=== PATIENT | female | born 1940 | race Caucasian/White ===

== ENCOUNTER 2018-11-20 14:17 | Outpatient (REF) | payer MEDICARE, OTHER, SELFPAY ==
--- NOTE | 2018-11-20 12:10 | CER_PTH ---
PATIENT: Artie Almaraz LOC: [facility] U#:[id number] AGE/SX: 78/F ROOM: RE11/20/[address]: Jessica Cifuentes MD : [id number] BED: DIS: 11/20/2018 SPEC #: [id number] RECD: 11/20/18 17:44 STATUS: KASSANDRA REQ #: [id number] ONOFRE: 11/20/18 12:[address]: Jessica Cifuentes DEPT: Surgical Specimen RECD BY: Gloria Crarero ENTERED: 11/20/18 17:45 SP TYPE: CER OTHR DR: Shonda Franco Tissues: 1 - CERVICAL BIOPSY Procedures: GROSS AND MICRO LEVEL 4 Comments: [id number]
== END 2018-11-20 14:37 ==
LOC: LBN 14:17
PROVIDERS: PCP Nurse Practitioner Family; Visit Provider Obstetrics & Gynecology
DX: N84.1 Polyp of cervix uteri (principal); N88.8 Other specified noninflammatory disorders of cervix uteri
CPT/HCPCS: 88305

== ENCOUNTER 2019-09-15 16:16 | Outpatient (REF) | payer MEDICARE, SELFPAY | END 2019-09-15 16:36 | LOC: LBN 16:16 | PROVIDERS: PCP Nurse Practitioner Family; Visit Provider Obstetrics & Gynecology Gynecology | DX: R30.0 Dysuria (principal) | CPT/HCPCS: 87077; 87086; 87186 ==

== ENCOUNTER 2022-10-10 12:19 | Inpatient (IN) | payer MEDICARE, SELFPAY ==
[2022-10-10] VITALS (23 sets, daily range): BP systolic 116–147; BP diastolic 48–73; PULSE 56–65; RESP 14–25; TEMP 36.8–37.2; O2SAT 94–98
--- NOTE | 2022-10-10 12:30 | RT.EKG_ITS ---
APPROVED REPORT Exam: Resting ECG Reason for Exam: syncope Patient Location: E HR:56 bpm ECG Measurements Heart Rate 56 AXIS MA 213 P 16 QRSd 143 QRS 27 QT 467 T -2 QTc 452 Conclusion Sinus bradycardia...rate< 60 Borderline prolonged MA interval...MA >212, V-rate 50- 90 Right bundle branch block...QRSd>120, terminal axis(90,270)
--- NOTE | 2022-10-10 12:45 | DI.RAD_ITS ---
Exam(s) XR PORTABLE CHEST AP EXAM: XR PORTABLE CHEST AP CLINICAL HISTORY: cough 2 weeks, pui. TECHNIQUE: 2D digital imaging was performed. COMPARISON: No exams were available for comparison FINDINGS: Single AP portable view. Heart size is upper normal. The mediastinum is not widened. Lungs are clear. No infiltrates nor obvious pleural effusions. IMPRESSION: No acute pulmonary findings on this single AP portable view of the chest. DATA REPOSITORY: RADIATION DOSE DELIVERED:
--- NOTE | 2022-10-10 13:06 | NUR.NOTE ---
Nursing Note: pt reports a family friend who is a doctor came to her house some time and tested her for COVID. She states this test was negative. Pt reports he gave her the script for tamiflu which was filled and 2 doses taken yesterday but that her family friend doctor that gave her this did not test her for flu or tell her she had flu but gave her tamiflu which she did take 2 doses (1 days worth) and then came here.
[2022-10-10 13:14] LABS: Abs Immature Grans 0.03 10^3/uL (0.0-0.06); Absolute Basophil Count 0.01 10^3/uL (0.0-0.2); Absolute Eosinophil Count 0.02 10^3/uL (0.0-0.7); Absolute Lymphocyte Count 1.25 10^3/uL (1.2-3.4); Absolute Monocyte Count 0.62 10^3/uL (0.1-0.8); Absolute Neutrophil Count 3.58 10^3/uL (1.2-6.7); Basophils % 0.2; Eosinophils % 0.4; HCT 34.5 % (36.0-46.0); HGB 11.5 g/dL (11.2-15.7); Immature Grans % 0.5; Lymphocytes % 22.7; MCH 28.8 pg (27.0-33.0); MCHC 33.3 % (32.0-36.0); MCV 87 fL (80-95); MPV 10.5 fL (8.0-11.0); Monocytes % 11.3; Neutrophils % 64.9; Platelet Count 181 10^3/uL (130-400); RBC 3.99 10^6/uL (3.93-5.22); RDW-SD 44.5 fL; WBC 5.51 10^3/uL (4.4-10.8)
--- NOTE | 2022-10-10 13:20 | ED.GENADUL_ITS ---
Discharge Plan Disposition Patient Disposition: Admit to [facility] Condition: Serious Discharge Details Clinical Impression: Weakness, Influenza A, Hypomagnesemia, Hypokalemia, GELY (acute kidney injury), Rhabdomyolysis Primary Care Provider: Shonda Franco ED Provider: Elliott Monteiro Home Meds and New Rx's Prescriptions: No Action atenolol 25 MG tablet 50 mg PO DAILY losartan-hydrochlorothiazide 1 EACH tablet 1 tab-cap PO DAILY simvastatin 20 MG tablet 20 mg PO DAILY EYE VITAMINS PO DAILY losartan 100 mg Tablet 100 mg PO DAILY hydrochlorothiazide 25 mg Tablet 25 mg PO DAILY oseltamivir 75 mg Capsule 75 mg PO BID Medical Decision Making 1411 --81-year-old female here with generalized weakness over the past few days, recent cough for the past 2 to 3 weeks. Patient called primary care physician and was started on Tamiflu empirically which she has been taking for couple days. Patient does have rhonchi on exam but is saturating well in no respiratory distress. Patient is generally weak with no focal deficits. Considered ACS. EKG was reviewed and interpreted by me: Please see report, sinus bradycardia 56 bpm right bundle branch block. Initial troponin negative. Influenza is positive. Patient receiving IV fluid. Labs reviewed and hypomagnesemia and hypokalemia noted. I will initiate replacement with magnesium 1 g IV. Patient does have elevated creatinine and BUN. I suspect prerenal secondary to hypovolemia. Plan to admit for further treatment. -- I spoke with Dr. Solorzano, discussed ED presentation course, he will admit the patient. Lab Data Lab results reviewed: Yes I reviewed the patient's lab results. Labs: Laboratory Tests Range/Units 10/10/22 10/10/22 10/10/22 12:35 12:35 13:03 WBC (4.4-10.8) 10^3/uL 5.51 RBC (3.93-5.22) 10^6/uL 3.99 Hgb (11.2-15.7) g/dL 11.5 Hct (36.0-46.0) % 34.5 L MCV (80-95) fL 87 MCH (27.0-33.0) pg 28.8 MCHC (32.0-36.0) % 33.3 RDW (11.7-14.6) % 14.0 Plt Count (130-400) 10^3/uL 181 MPV (8.0-11.0) fL 10.5 Immature Gran % 0.5 Neutrophils % 64.9 Lymphocytes % 22.7 Monocytes % 11.3 Eosinophils % 0.4 Basophils % 0.2 Nucleated RBC % (0.0-0.3) % 0.0 Absolute Neutrophils (1.2-6.7) 10^3/uL 3.58 Absolute Lymphocytes (1.2-3.4) 10^3/uL 1.25 Absolute Monocytes (0.1-0.8) 10^3/uL 0.62 Absolute Eosinophils (0.0-0.7) 10^3/uL 0.02 Absolute Basophils (0.0-0.2) 10^3/uL 0.01 Sodium (136-145) mmol/L 138 Potassium (3.5-5.1) mmol/L 3.1 L Chloride (98-107) mmol/L 101 Carbon Dioxide (21.0-32.0) mmol/L 26.9 Anion Gap (3-11) mmol/L 10.1 BUN (7-18) mg/dL 28 H Creatinine (0.55-1.02) mg/dL 1.7 H Est GFR (CKD-EPI 2020) (mL/min/1.73m2) 29.94 Glucose (74-106) mg/dL 102 Calcium (8.5-10.1) mg/dL 9.1 Magnesium (1.8-2.4) mg/dL 1.7 L Total Bilirubin (0.2-1.0) mg/dL 0.6 AST (15-37) U/L 59 H ALT (14-59) U/L 66 H Alkaline Phosphatase (46-116) U/L 97 Creatine Kinase (26-192) U/L 969 H Troponin I (<or=60) ng/L < 50 Total Protein (6.4-8.2) g/dL 7.9 Albumin (3.4-5.0) g/dL 3.9 TSH (0.36-3.74) uIU/mL 3.48 COVID-19 Source Not Applicable SARS-CoV-2 (PCR) (Negative) Negative Influenza Type A (PCR) (Negative) Positive A Influenza Type B (PCR) (Negative) Negative RSV (PCR) (Negative) Negative HPI General Mode of arrival: EMS . Date/Time Provider Initiated Documentation: 10/10/22 12:37 . Limitations to Documentation: no limitations . Information obtained by: patient and EMS . HPI Narrative: 81-year-old female with history of hypertension and hyperlipidemia presents with weakness. Patient notes generalized weakness worsening over the past few days. She states she has had respiratory illness with cough over the past 2 to 3 weeks. Cough has improved but she remains generally weak. She has lack of appetite. Today she was attempting out of bed and slid to the floor and could not get back up. She did not lose consciousness. She not hit her head. She denies chest pain or shortness of breath. Weakness is constant with no modifiers. No focal weakness. Related Data Home Medications Medication Instructions Recorded Confirmed atenolol 25 mg tablet 50 mg PO DAILY 11/23/13 10/10/22 losartan 100 1 tab-cap PO DAILY 11/23/13 03/20/22 mg-hydrochlorothiazide 25 mg tablet simvastatin 20 mg tablet 20 mg PO DAILY 11/23/13 10/10/22 Eye Vitamins PO DAILY 01/14/18 03/20/22 hydrochlorothiazide 25 mg tablet 25 mg PO DAILY 10/10/22 10/10/22 losartan 100 mg tablet 100 mg PO DAILY 10/10/22 10/10/22 oseltamivir 75 mg capsule 75 mg PO BID 10/10/22 10/10/22 Allergies Allergy/AdvReac Type Severity Reaction Status Date / Time acetaminophen [From Percocet] Allergy Unknown Verified 08/28/22 11:11 oxycodone HCl [From Percocet] Allergy Unknown Verified 08/28/22 11:11 erythromycin base AdvReac Sick to Verified 08/28/22 11:11 stomach General Stated Complaint: [id number] WHITNEY: 3 Review of Systems All systems reviewed & are unremarkable except as noted in HPI and below Constitutional Constitutional: Denies fever(s) Eyes Comments: Chronic ptosis left eye Respiratory Respiratory: Reports cough PFSH All Active Problems (Updated 10/10/22 @ 14:14 by Elliott Monteiro MD) Weakness (Acute) Influenza A (Acute) Hypomagnesemia (Acute) Hypokalemia (Acute) GELY (acute kidney injury) (Acute) Rhabdomyolysis (Acute) Skin rash (Acute) Patient advised to use topical antifungal and change type Vulvitis (Acute) History of Mohs surgery for squamous cell carcinoma of skin (Acute) 2016. X2. Fascial defect repaired by plastic surgery at [facility] [place] Presence of pessary (Chronic) 10/2018 64 mm donut pessary. Slipped out with Valsalva. 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 10/2018 64 mm donut pessary 08/2019 64 mm short stem Gellhorn. Essential hypertension (Acute) Hyperlipidemia (Acute) Cervical polyp (Acute 02/08/14) Family History Daughter Heart disease History of cardia myopathy had a successful heart transplant Social History Smoking/Tobacco Use Status: Never Smoking risk assessment performed?: Yes Alcohol Intake: current Alcohol Intake frequency: holidays/special occasions only Drug use: Never Substance use type: does not use Household members: spouse and other Details: H-Brayan Number of Children: 4 current occupation: Retired Do you feel safe at home: Yes Do you feel safe in your relationship?: Yes Exam Const General: cooperative and no acute distress HENMT Head: normocephalic and atraumatic Mouth: moist mucous membranes Eyes Conjunctivae: normal conjunctivae Sclera: normal sclerae EOM: EOM intact bilaterally Neck Neck: trachea midline and supple Resp Effort & Inspection: not labored Auscultation: no rales, rhonchi and no wheezes Cardio Rate: regular rate and not tachycardic Rhythm: regular rhythm GI Palpation: soft, not firm, no guarding, no masses, not rigid and nontender Skin General skin exam: no rashes or lesions noted Neuro General: patient alert and patient awake Motor: strength abnormal (3/5 all extremities, has difficulty sitting up in bed without assistance) Extrem General: no edema Psych Appearance: grossly normal Course Vital Signs Vital signs: Vital Signs Temperature 36.8 C 10/10/22 12:27 Pulse 65 10/10/22 12:27 Respiratory Rate 18 10/10/22 12:27 Blood Pressure 147/64 H 10/10/22 12:27 Pulse Oximetry 98 10/10/22 12:27 Temperature 36.8 C 10/10/22 12:27 Temperature Source Tympanic 10/10/22 12:27 Pulse 65 10/10/22 12:27 Respiratory Rate 18 10/10/22 12:27 Respiratory Effort 10/10/22 12:31 Respiratory Depth Normal 10/10/22 12:31 Respiratory Pattern Normal 10/10/22 12:31 Blood Pressure 147/64 H 10/10/22 12:27 Blood Pressure Position Supine 10/10/22 12:27 Pulse Oximetry 98 10/10/22 12:27 Oxygen Delivery Method Room Air 10/10/22 12:27 Oxygen Flow Rate 0 10/10/22 12:27 Pain Level 0 10/10/22 12:27 Lab/Test Results Lab/Test Results: Laboratory Tests Range/Units 10/10/22 12:35 WBC (4.4-10.8) 10^3/uL 5.51 RBC (3.93-5.22) 10^6/uL 3.99 Hgb (11.2-15.7) g/dL 11.5 Hct (36.0-46.0) % 34.5 L MCV (80-95) fL 87 MCH (27.0-33.0) pg 28.8 MCHC (32.0-36.0) % 33.3 RDW (11.7-14.6) % 14.0 Plt Count (130-400) 10^3/uL 181 MPV (8.0-11.0) fL 10.5 Immature Gran % 0.5 Neutrophils % 64.9 Lymphocytes % 22.7 Monocytes % 11.3 Eosinophils % 0.4 Basophils % 0.2 Nucleated RBC % (0.0-0.3) % 0.0 Absolute Neutrophils (1.2-6.7) 10^3/uL 3.58 Absolute Lymphocytes (1.2-3.4) 10^3/uL 1.25 Absolute Monocytes (0.1-0.8) 10^3/uL 0.62 Absolute Eosinophils (0.0-0.7) 10^3/uL 0.02 Absolute Basophils (0.0-0.2) 10^3/uL 0.01
[2022-10-10 13:35] LABS: ALT 66 U/L (14-59); AST 59 U/L (15-37); Albumin 3.9 g/dL (3.4-5.0); Alkaline Phosphatase 97 U/L (46-116); Anion Gap 10.1 mmol/L (3-11); BUN 28 mg/dL (7-18); Bilirubin, Total 0.6 mg/dL (0.2-1.0); CO2 26.9 mmol/L (21.0-32.0); CREATININE 1.7 mg/dL (0.55-1.02); Calcium 9.1 mg/dL (8.5-10.1); Chloride 101 mmol/L (98-107); Creatine Kinase 969 U/L (26-192); Estimated GFR 29.94 (mL/min/1.73m2); Glucose 102 mg/dL (74-106); Magnesium 1.7 mg/dL (1.8-2.4); Potassium 3.1 mmol/L (3.5-5.1); Sodium 138 mmol/L (136-145); TSH (W/Ref FT4) 3.48 uIU/mL (0.36-3.74); Total Protein 7.9 g/dL (6.4-8.2); Troponin I < 50 ng/L (<or=60)
[2022-10-10 13:47] LABS: COVID-19 PCR Negative (Negative); Influenza A PCR Positive (Negative); Influenza B PCR Negative (Negative); RSV PCR Negative (Negative)
[2022-10-10] MEDS: MAGNESIUM SULFATE 1 GM/100 ML BAG IVPB (14:26)
--- NOTE | 2022-10-10 14:27 | NUR.NOTE ---
Nursing Note: PT RESTING ON STRETCHER, FAMILY IN WAITING ROOM UPDATED, VICE PRESIDENT RESEARCH ON IV MAG. ORDERED, CONT. TO MONITOR.
[2022-10-10] MEDS: POTASSIUM CHLORIDE 20 MEQ/100 ML BAG 50 MEQ IVPB (15:57)
[2022-10-10 16:55] LABS: Bilirubin Negative (Negative); Blood Small (Negative); Clarity Sl Cloudy (Clear); Glucose Negative (Negative); Ketones Negative (Negative); Leukocyte Esterase Negative (Negative); Nitrite Negative (Negative); Specific Gravity >= 1.030 (1.005-1.025); Urobilinogen 0.2 EU/dL (Up TO 0.2)
[2022-10-10 17:06] LABS: Bacteria Moderate HPF (Negative); C & S Indicated? No/Sq. Contamination; Casts 3-5 Hyaline LPF (Negative); Crystals Negative HPF (Negative); Epithelial Cells Many HPF (Negative); Mucus Negative (Negative)
[2022-10-10] MEDS: Oseltamivir 30 MG CAP PO (17:53)
[2022-10-10] MEDS: Enoxaparin 30 MG/0.3 ML SYR SC (17:53)
[2022-10-10] MEDS: Normal Saline Flush 10 ML SYR IVP (17:57)
--- NOTE | 2022-10-10 19:28 | W.PM.HP.N ---
Date of service: 10/10/22 Time of Service: 19:28 Assessment and Plan Assessment and plan (1) Weakness: Status: Acute Assessment and plan: Secondary to INfluenza A PT to evaluate. Likely to resolve as influenza resolves. (2) Influenza A: Status: Acute Assessment and plan: Cont Tamiflu initiated as outpt No hypoxia noted. Supportive measures. (3) Hypomagnesemia: Status: Acute Assessment and plan: Repleting. Monitoring. (4) Hypokalemia: Status: Acute Assessment and plan: Repleting. Monitoring. (5) GELY (acute kidney injury): Status: Acute Assessment and plan: BUN and creatinine elevated; unknown baseline. Hydration. Monitor. (6) Rhabdomyolysis: Status: Acute Assessment and plan: Secondary to lying on floor overnight d/t weakness. Monitoring CK. Fluids. (7) Essential hypertension: Status: Acute Assessment and plan: Cont Atenolol and Losartan Monitor. (8) Hyperlipidemia: Status: Acute Assessment and plan: Cont Simvastatin. (9) Discharge planning issues: Status: Acute Assessment and plan: Likely home with no services but will be advised by PT after their evaluation for any rehab needs. History of Present Illness History of Present Illness Chief Complaint: Generalized weakness Narrative: This is an 81 yo female with a PMH of HTN, HLD, facial neuralgia, cystocele with rectocele. She presented to the ED because of generalized weakness over the last several days. For 2-3 weeks she had a cough that had improved. On the day of admission she was getting out of bed but she was weak in the legs and slid to the floor. No LOC. She denied hitting her head. She had no preceding palpitations, CP, SOA. She has had no fever/chills. In the ED her influenza A was positive. Her Mg and K were low and repletion efforts initiated. EKG showed sinus bradycardia with a HR of 56 and a RBBB. Troponin neg. WBC normal. Hgb 11.5. Creatinine 1.7. Baseline labs values not known. Admitted for further treatment; Tamiflu, PT, fluids, monitoring of lytes, CPK and creatinine. Review of Systems All systems reviewed & are unremarkable except as noted in HPI and below PFSH All Active Problems (Updated 10/11/22 @ 07:38 by Federico Solorzano MD) Discharge planning issues (Acute) Weakness (Acute) Influenza A (Acute) Hypomagnesemia (Acute) Hypokalemia (Acute) GELY (acute kidney injury) (Acute) Rhabdomyolysis (Acute) Skin rash (Acute) Patient advised to use topical antifungal and change type Vulvitis (Acute) History of Mohs surgery for squamous cell carcinoma of skin (Acute) 2016. X2. Fascial defect repaired by plastic surgery at [facility] [place] Presence of pessary (Chronic) 10/2018 64 mm donut pessary. Slipped out with Valsalva. 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 10/2018 64 mm donut pessary 08/2019 64 mm short stem Gellhorn. Essential hypertension (Acute) Hyperlipidemia (Acute) Cervical polyp (Acute 02/08/14) Family History Daughter Heart disease History of cardia myopathy had a successful heart transplant Social History Smoking/Tobacco Use Status: Never Smoking risk assessment performed?: Yes Alcohol Intake: current Alcohol Intake frequency: holidays/special occasions only Drug use: Never Substance use type: does not use Household members: spouse and other Details: H-Brayan Number of Children: 4 current occupation: Retired Do you feel safe at home: Yes Do you feel safe in your relationship?: Yes Meds Allergies and Home Medications Allergies Allergy/AdvReac Type Severity Reaction Status Date / Time acetaminophen [From Percocet] Allergy Unknown Verified 08/28/22 11:11 oxycodone HCl [From Percocet] Allergy Unknown Verified 08/28/22 11:11 erythromycin base AdvReac Sick to Verified 08/28/22 11:11 stomach Home Medications Medication Instructions Recorded Confirmed Type atenolol 25 mg tablet 50 mg PO DAILY 11/23/13 10/10/22 History losartan 100 1 tab-cap PO DAILY 11/23/13 03/20/22 History mg-hydrochlorothiazide 25 mg tablet simvastatin 20 mg tablet 20 mg PO DAILY 11/23/13 10/10/22 History Eye Vitamins PO DAILY 01/14/18 03/20/22 History hydrochlorothiazide 25 mg tablet 25 mg PO DAILY 10/10/22 10/10/22 History losartan 100 mg tablet 100 mg PO DAILY 10/10/22 10/10/22 History oseltamivir 75 mg capsule 75 mg PO BID 10/10/22 10/10/22 History Exam Narrative Exam Narrative: Pleasant elderly female lying in bed. Does not appear toxic. Const General: cooperative and no acute distress Nutritional Appearance: average body habitus Orientation: alert and oriented x3 Eyes General: appearance normal, both eyes and all related structures Sclera: sclerae normal Resp Effort & Inspection: normal respiratory effort Auscultation: clear to auscultation bilaterally Cardio Rate: regular rate Rhythm: regular rhythm Heart Sounds: S1 normal, S2 normal and no murmurs GI Inspection: non-distended Palpation: soft and nontender Skin General skin exam: no rashes or lesions noted Neuro General: no focal motor deficits Cranial Nerves: facial strength normal Cognition: normal cognition Speech: speech normal Results Labs Result diagrams: 10/10/22 12:35 10/10/22 12:35 Labs: Laboratory Results - last 24 hr 10/10/22 10/10/22 10/10/22 12:35 12:35 13:03 WBC 5.51 RBC 3.99 Hgb 11.5 Hct 34.5 L MCV 87 MCH 28.8 MCHC 33.3 RDW 14.0 Plt Count 181 MPV 10.5 Immature Gran % 0.5 Neutrophils % 64.9 Lymphocytes % 22.7 Monocytes % 11.3 Eosinophils % 0.4 Basophils % 0.2 Nucleated RBC % 0.0 Absolute Neutrophils 3.58 Absolute Lymphocytes 1.25 Absolute Monocytes 0.62 Absolute Eosinophils 0.02 Absolute Basophils 0.01 Sodium 138 Potassium 3.1 L Chloride 101 Carbon Dioxide 26.9 Anion Gap 10.1 BUN 28 H Creatinine 1.7 H Est GFR (CKD-EPI 2020) 29.94 Glucose 102 Calcium 9.1 Magnesium 1.7 L Total Bilirubin 0.6 AST 59 H ALT 66 H Alkaline Phosphatase 97 Creatine Kinase 969 H Troponin I < 50 Total Protein 7.9 Albumin 3.9 TSH 3.48 Urine Color Urine Clarity Urine pH Ur Specific Randle Urine Protein Urine Ketones Urine Blood Urine Nitrite Urine Bilirubin Urine Urobilinogen Ur Leukocyte Esterase Urine RBC Urine WBC Ur Epithelial Cells Urine Crystals Urine Bacteria Urine Casts Urine Mucus Ur Culture Indicated? Urine Glucose COVID-19 Source Not Applicable SARS-CoV-2 (PCR) Negative Influenza Type A (PCR) Positive A Influenza Type B (PCR) Negative RSV (PCR) Negative 10/10/22 16:40 WBC RBC Hgb Hct MCV MCH MCHC RDW Plt Count MPV Immature Gran % Neutrophils % Lymphocytes % Monocytes % Eosinophils % Basophils % Nucleated RBC % Absolute Neutrophils Absolute Lymphocytes Absolute Monocytes Absolute Eosinophils Absolute Basophils Sodium Potassium Chloride Carbon Dioxide Anion Gap BUN Creatinine Est GFR (CKD-EPI 2020) Glucose Calcium Magnesium Total Bilirubin AST ALT Alkaline Phosphatase Creatine Kinase Troponin I Total Protein Albumin TSH Urine Color Yellow Urine Clarity Sl Cloudy Urine pH 6.0 Ur Specific Randle >= 1.030 H Urine Protein Trace H Urine Ketones Negative Urine Blood Small H Urine Nitrite Negative Urine Bilirubin Negative Urine Urobilinogen 0.2 Ur Leukocyte Esterase Negative Urine RBC 3-5 H Urine WBC 3-5 Ur Epithelial Cells Many Urine Crystals Negative Urine Bacteria Moderate Urine Casts 3-5 Hyaline Urine Mucus Negative Ur Culture Indicated? No/Sq. Contamination Urine Glucose Negative COVID-19 Source SARS-CoV-2 (PCR) Influenza Type A (PCR) Influenza Type B (PCR) RSV (PCR) Last Vital Signs Temp 37.2 C 10/10/22 16:13 Pulse 65 10/10/22 16:13 Resp 20 10/10/22 16:13 BP 117/70 10/10/22 16:13 Pulse Ox 95 10/10/22 16:13
[2022-10-10] MEDS: Potassium Chloride 20 MEQ TABCR PO (20:23)
[2022-10-10] MEDS: Normal Saline 250 ML IV (20:44)
[2022-10-10 21:23] LABS: Bilirubin Negative (Negative); Blood Small (Negative); Clarity Sl Cloudy (Clear); Glucose Negative (Negative); Ketones Trace mg/dL (Negative); Leukocyte Esterase Negative (Negative); Nitrite Negative (Negative); Specific Gravity 1.025 (1.005-1.025); Urobilinogen 0.2 EU/dL (Up TO 0.2); pH 5.5 (5-8)
[2022-10-10] MEDS: Simvastatin 20 MG TAB PO (21:53)
[2022-10-10] MEDS: Atenolol 25 MG TAB 50 MG PO (21:53)
[2022-10-10] MEDS: Losartan 50 MG TAB 100 MG PO (21:54)
[2022-10-10 22:15] LABS: Bacteria Moderate HPF (Negative); C & S Indicated? No/Sq. Contamination; Casts 0-2 Hyaline LPF (Negative); Crystals Negative HPF (Negative); Epithelial Cells Many HPF (Negative); Mucus Negative (Negative); WBC 0-2 HPF (0-5)
[2022-10-11 07:47] LABS: Anion Gap 8.6 mmol/L (3-11); BUN 30 mg/dL (7-18); CO2 25.4 mmol/L (21.0-32.0); CREATININE 1.4 mg/dL (0.55-1.02); Calcium 9.1 mg/dL (8.5-10.1); Chloride 105 mmol/L (98-107); Glucose 79 mg/dL (74-106); Magnesium 2.1 mg/dL (1.8-2.4); Potassium 3.7 mmol/L (3.5-5.1); Sodium 139 mmol/L (136-145)
[2022-10-11 07:48] LABS: Creatine Kinase 1321 U/L (26-192)
[2022-10-11] MEDS: Oseltamivir 30 MG CAP PO (07:48)
[2022-10-11] MEDS: Potassium Chloride 20 MEQ TABCR PO (07:49)
[2022-10-11 07:50] LABS: Troponin I < 50 ng/L (<or=60)
[2022-10-11 07:51] VITALS: BP 131/72; PULSE 65; RESP 16; TEMP 37.2; O2SAT 95
--- NOTE | 2022-10-11 08:29 | INITIAL_ITS ---
- If Service Date Differs Date of service: 10/11/22 Time of Service: 13:43 Care Management Initial Assess REASON FOR HOSPITALIZATION:: Influenza A PAST MEDICAL HISTORY/PAST SURGICAL HISTORY:: All Active Problems (Updated 10/11/22 @ 07:38 by Federico Solorzano MD). Discharge planning issues (Acute). Weakness (Acute). Influenza A (Acute). Hypomagnesemia (Acute). Hypokalemia (Acute). GELY (acute kidney injury) (Acute). Rhabdomyolysis (Acute). Skin rash (Acute). Patient advised to use topical antifungal and change type. Vulvitis (Acute). History of Mohs surgery for squamous cell carcinoma of skin (Acute). 2016. X2. Fascial defect repaired [place] [facility] [place] Presence of pessary (Chronic). 10/2018 64 mm donut pessary. Slipped out with Valsalva. 08/2019 64 mm short stem Gellhorn placed. Facial neuralgia (Chronic). 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 Subsequent nerve damage involving sensation on cheek and left eye. Pessary maintenance (Acute). Cystocele with rectocele (Acute). And stage II uterine prolapse. 10/2018 64 mm donut pessary. 08/2019 64 mm short stem Gellhorn. Essential hypertension (Acute). Hyperlipidemia (Acute). Cervical polyp (Acute 02/08/14) PREVIOUS FUNCTIONAL STATUS/SOCIAL/FAMILY SUPPORTS:: Artie lives in [place], [place] with her Brayan. CURRENT FUNCTIONAL STATUS:: Shobha was dressed and ready to discharge when met with her. She informed that her daughter would be transporting her. She expressed concern because her daughter has recently had open heart surgery. provided Artie with 2 masks, one for her and one for her daughter to wear in the car as Artie has Influenza A. ADVANCE DIRECTIVES:: none on file Has patient been provided with info about the portal/API?: Yes Did the patient sign up for the portal?: No CODE STATUS:: Full Code INSURANCE COVERAGE / FINANCIAL ISSUES:: Medicare. [employer] Senior supplement CURRENT HOME/COMMUNITY SERVICES/EQUIPMENT:: none PRIMARY CARE PHYSICIAN:: Shonda Franco POTENTIAL DISCHARGE NEEDS:: Follow up with PCP and plan of care PATIENT/FAMILY EDUCATION NEEDS:: Review of discharge instructions, limitations, medications, activity, follow up plan, Ask Me Three TRANSPORTATION:: via privatre vehicle with daughter PLAN:: Artie will be discharged home with no new services. She will follow up with her community providers and plan of care and transport with her daughter.
--- NOTE | 2022-10-11 12:20 | DSE_ITS ---
Date of service: 10/11/22 Time of Service: 12:23 DS: Diagnosis Discharge Diagnosis (1) Weakness: Status: Acute (2) Influenza A: Status: Acute (3) Hypomagnesemia: Status: Acute (4) Hypokalemia: Status: Acute (5) GELY (acute kidney injury): Status: Acute (6) Rhabdomyolysis: Status: Acute (7) Essential hypertension: Status: Acute (8) Hyperlipidemia: Status: Acute (9) Discharge planning issues: Status: Acute Discharge Plan Disposition Patient Disposition: Home Condition: Improving Discharge Details Reason For Visit: Influenza A Generalized weakness Admit Date/Time: 10/10/22 14:31 Admit Provider: Federico Solorzano Attending Provider: Federico Solorzano Primary Care Provider: Shonda Franco Hospital Course Hospital Course: This is an 81 yo female with a PMH of HTN, HLD, facial neuralgia, cystocele with rectocele.? She presented to the ED because of generalized weakness over the last several days. For 2-3 weeks she had a cough that had improved.? On the day of admission she was getting out of bed but she was weak in the legs and slid to the floor.? No LOC.? She denied hitting her head.? She had no preceding palpitations, CP, SOA.? She has had no fever/chills. In the ED her influenza A was positive.? Her Mg and K were low and repletion efforts initiated.? EKG showed sinus bradycardia with a HR of 56 and a RBBB.? Troponin neg.? WBC normal.? Hgb 11.5.? Creatinine 1.7.? Baseline labs values not known.? Admitted for further treatment; Tamiflu, PT, fluids, monitoring of lytes, CPK and creatinine. She felt better the following day. She ambulated independently in her room and felt she was progressing. Her lytes were repleted and normalized. Her CPK did increase modestly from 969 to 1321. However, her creatinine improved from 1.6 to 1.4. Another 250ml NS bolus administered prior to discharge. Encouraged to drink adequate fluids to keep her urine pale yellow. Follow up with PCP in 1-2 weeks. ? Home Meds and New Rx's Prescriptions: Continued atenolol 25 MG tablet 50 mg PO DAILY losartan-hydrochlorothiazide 1 EACH tablet 1 tab-cap PO DAILY simvastatin 20 MG tablet 20 mg PO DAILY EYE VITAMINS PO DAILY hydrochlorothiazide 25 mg Tablet 25 mg PO DAILY Discontinued losartan 100 mg Tablet 100 mg PO DAILY oseltamivir 75 mg Capsule 75 mg PO BID Discharge Instructions Activity:: Activity as Tolerated Equipment/Supplies:: No Equipment Needed Diet:: Resume usual diet Discharge Orders Discharge Orders: Discharge Order (Routine); Ordered 10/11/22 Ordered By: Federico Solorzano DS: Summary Time Spent with Patient providing and/or coordinating discharge services: Greater than 30 minutes Status at Discharge Functional status at discharge: independent ambulation Overall status at discharge: patient is progressing back to baseline Mental Status: mental status grossly normal Speech and Movement: speech and movement normal Mood: congruent mood Affect: normal affect Exam Narrative Exam Narrative: Pleasant elderly female lying in bed. Does not appear toxic. Const General: cooperative and no acute distress Nutritional Appearance: average body habitus Orientation: alert and oriented x3 Eyes General: appearance normal, both eyes and all related structures Sclera: sclerae normal Resp Effort & Inspection: normal respiratory effort Auscultation: clear to auscultation bilaterally Cardio Rate: regular rate Rhythm: regular rhythm Heart Sounds: S1 normal, S2 normal and no murmurs GI Inspection: non-distended Palpation: soft and nontender Skin General skin exam: no rashes or lesions noted Neuro General: no focal motor deficits Cranial Nerves: facial strength normal Cognition: normal cognition Speech: speech normal Extrem General: no pedal edema and no calf tenderness Psych Mental Status: mental status grossly normal Speech and Movement: speech and movement normal Mood: congruent mood Affect: normal affect DS: Data Vitals/I&O Vitals and I&O: Vital Signs Temperature 37.2 C 10/11/22 07:51 Temperature Source Tympanic 10/11/22 07:51 Pulse 65 10/11/22 07:51 Pulse Rhythm Regular 10/11/22 07:45 Pulse 59 L 10/10/22 15:50 Respiratory Rate 16 10/11/22 07:51 Respiratory Effort Non-Labored 10/11/22 07:45 Respiratory Depth Normal 10/11/22 07:45 Respiratory Pattern Normal 10/11/22 07:45 Blood Pressure 131/72 10/11/22 07:51 Blood Pressure Mean 75 10/10/22 15:45 Blood Pressure Position Supine 10/10/22 12:27 Pulse Oximetry 95 10/11/22 07:51 Oxygen Delivery Method Room Air 10/11/22 07:51 Oxygen Flow Rate 0 10/11/22 07:51 Pain Level 0 10/11/22 07:51 Intake & Output 10/10/22 10/11/22 10/11/22 23:59 11:59 23:59 Intake Total 550 / 550 Output Total 250 / 250 500 / 500 Balance 300 / 300 -500 / -500 Weight 72.575 kg Intake: IV 450 / 450 Oral 100 / 100 Output: Urine 250 / 250 500 / 500 Other: Urine Color Yellow Yellow Urine Appearance Clear Clear Urine Odor Normal None Data Completed and Pending Labs on day of discharge: Labs from last 24 hours 10/11/22 10/11/22 10/10/22 06:40 06:40 20:36 WBC RBC Hgb Hct MCV MCH MCHC RDW Plt Count MPV Immature Gran % Neutrophils % Lymphocytes % Monocytes % Eosinophils % Basophils % Nucleated RBC % Absolute Neutrophils Absolute Lymphocytes Absolute Monocytes Absolute Eosinophils Absolute Basophils Sodium 139 Potassium 3.7 Chloride 105 Carbon Dioxide 25.4 Anion Gap 8.6 BUN 30 H Creatinine 1.4 H Est GFR (CKD-EPI 2020) 37.80 Glucose 79 Calcium 9.1 Magnesium 2.1 Total Bilirubin AST ALT Alkaline Phosphatase Creatine Kinase 1321 H Troponin I < 50 Total Protein Albumin TSH Urine Color Yellow Urine Clarity Sl Cloudy Urine pH 5.5 Ur Specific Gardiner 1.025 Urine Protein 30 H Urine Ketones Trace H Urine Blood Small H Urine Nitrite Negative Urine Bilirubin Negative Urine Urobilinogen 0.2 Ur Leukocyte Esterase Negative Urine RBC 3-5 H Urine WBC 0-2 Ur Epithelial Cells Many Urine Crystals Negative Urine Bacteria Moderate Urine Casts 0-2 Hyaline Urine Mucus Negative Ur Culture Indicated? No/Sq. Contamination Urine Glucose Negative COVID-19 Source SARS-CoV-2 (PCR) Influenza Type A (PCR) Influenza Type B (PCR) RSV (PCR) 10/10/22 10/10/22 10/10/22 16:40 13:03 12:35 WBC 5.51 RBC 3.99 Hgb 11.5 Hct 34.5 L MCV 87 MCH 28.8 MCHC 33.3 RDW 14.0 Plt Count 181 MPV 10.5 Immature Gran % 0.5 Neutrophils % 64.9 Lymphocytes % 22.7 Monocytes % 11.3 Eosinophils % 0.4 Basophils % 0.2 Nucleated RBC % 0.0 Absolute Neutrophils 3.58 Absolute Lymphocytes 1.25 Absolute Monocytes 0.62 Absolute Eosinophils 0.02 Absolute Basophils 0.01 Sodium Potassium Chloride Carbon Dioxide Anion Gap BUN Creatinine Est GFR (CKD-EPI 2020) Glucose Calcium Magnesium Total Bilirubin AST ALT Alkaline Phosphatase Creatine Kinase Troponin I Total Protein Albumin TSH Urine Color Yellow Urine Clarity Sl Cloudy Urine pH 6.0 Ur Specific Gardiner >= 1.030 H Urine Protein Trace H Urine Ketones Negative Urine Blood Small H Urine Nitrite Negative Urine Bilirubin Negative Urine Urobilinogen 0.2 Ur Leukocyte Esterase Negative Urine RBC 3-5 H Urine WBC 3-5 Ur Epithelial Cells Many Urine Crystals Negative Urine Bacteria Moderate Urine Casts 3-5 Hyaline Urine Mucus Negative Ur Culture Indicated? No/Sq. Contamination Urine Glucose Negative COVID-19 Source Not Applicable SARS-CoV-2 (PCR) Negative Influenza Type A (PCR) Positive A Influenza Type B (PCR) Negative RSV (PCR) Negative 10/10/22 12:35 WBC RBC Hgb Hct MCV MCH MCHC RDW Plt Count MPV Immature Gran % Neutrophils % Lymphocytes % Monocytes % Eosinophils % Basophils % Nucleated RBC % Absolute Neutrophils Absolute Lymphocytes Absolute Monocytes Absolute Eosinophils Absolute Basophils Sodium 138 Potassium 3.1 L Chloride 101 Carbon Dioxide 26.9 Anion Gap 10.1 BUN 28 H Creatinine 1.7 H Est GFR (CKD-EPI 2020) 29.94 Glucose 102 Calcium 9.1 Magnesium 1.7 L Total Bilirubin 0.6 AST 59 H ALT 66 H Alkaline Phosphatase 97 Creatine Kinase 969 H Troponin I < 50 Total Protein 7.9 Albumin 3.9 TSH 3.48 Urine Color Urine Clarity Urine pH Ur Specific Gardiner Urine Protein Urine Ketones Urine Blood Urine Nitrite Urine Bilirubin Urine Urobilinogen Ur Leukocyte Esterase Urine RBC Urine WBC Ur Epithelial Cells Urine Crystals Urine Bacteria Urine Casts Urine Mucus Ur Culture Indicated? Urine Glucose COVID-19 Source SARS-CoV-2 (PCR) Influenza Type A (PCR) Influenza Type B (PCR) RSV (PCR) PFSH All Active Problems Discharge planning issues (Acute) Weakness (Acute) Influenza A (Acute) Hypomagnesemia (Acute) Hypokalemia (Acute) GELY (acute kidney injury) (Acute) Rhabdomyolysis (Acute) Skin rash (Acute) Patient advised to use topical antifungal and change type Vulvitis (Acute) History of Mohs surgery for squamous cell carcinoma of skin (Acute) 2016. X2. Fascial defect repaired by plastic surgery at [facility] [place] Presence of pessary (Chronic) 10/2018 64 mm donut pessary. Slipped out with Valsalva. 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 10/2018 64 mm donut pessary 08/2019 64 mm short stem Gellhorn. Essential hypertension (Acute) Hyperlipidemia (Acute) Cervical polyp (Acute 02/08/14) Family History Daughter Heart disease History of cardia myopathy had a successful heart transplant Social History Smoking/Tobacco Use Status: Never Smoking risk assessment performed?: Yes Alcohol Intake: current Alcohol Intake frequency: holidays/special occasions only Drug use: Never Substance use type: does not use Household members: spouse and other Details: [facility] Number of Children: 4 current occupation: Retired Do you feel safe at home: Yes Do you feel safe in your relationship?: Yes
--- NOTE | 2022-10-11 12:52 | PT.INNT ---
Date of service: 10/11/22 Time of Service: 12:52 PT Notes Visit Reasons: Influenza A Generalized weakness Patient has been independent with mobility performance without need for assistive device per Nurse Loreto. No skilled services were provided for this epsiode of care.
--- NOTE | 2022-10-11 13:43 | PDOC.CMDIS ---
- If Service Date Differs Date of service: 10/11/22 Time of Service: 13:43 LACE Index Scoring Tool - Questions: Length of Stay (in days): 1 Acuity (Admit via E.D.?): Yes E.D. Visits: 0 - Answers: Total Score: 4 Risk of Readmission: Low Risk Care Management Discharge Reason for Hospitalization: Influenza A
== END 2022-10-11 13:08 | disposition home or self-care (01) | DRG 194 ==
LOC: ER 15:04 → MS 16:06
PROVIDERS: Admitting Provider Family Medicine; Emergency Provider Student in an Organized Health Care Education/Training Program; PCP Nurse Practitioner Family; Visit Provider Family Medicine
DX: J10.1 Influenza due to other identified influenza virus with other respiratory manifestations (principal); M62.82 Rhabdomyolysis; N17.9 Acute kidney failure, unspecified; R53.1 Weakness; E83.42 Hypomagnesemia; E87.6 Hypokalemia; E78.5 Hyperlipidemia, unspecified; W06.XXXA Fall from bed, initial encounter; I45.10 Unspecified right bundle-branch block
CPT/HCPCS: 36415; 80048; 80053; 82550; 87637; 93005; 96365; 96372; 96375; 99239; 99285; 71045; 81003; 81015; 83735; 84443; 84484; 85025; 93010; 99222; J1650; J3475; J3480

== ENCOUNTER 2023-07-04 08:27 | Emergency (ER) | payer MEDICARE, SELFPAY ==
--- NOTE | 2023-07-04 09:32 | W.ED.GENAD ---
Discharge Plan Disposition Patient Disposition: Home Discharge Details Chief Complaint: GenMedical Clinical Impression: COVID-19 Primary Care Provider: Unknown,Unknown ED Provider: August Barboza Home Meds and New Rx's Prescriptions: No Action lorazepam [Ativan] 0.5 mg tablet 0.5 mg PO QHS PRN (Reason: anxiety) Qty: 30 0RF atenolol 25 MG tablet 50 mg PO DAILY losartan-hydrochlorothiazide 1 EACH tablet 1 tab-cap PO DAILY simvastatin 20 MG tablet 20 mg PO DAILY EYE VITAMINS PO DAILY hydrochlorothiazide 25 mg Tablet 25 mg PO DAILY Discharge Instructions Instructions: COVID-19 (Coronavirus Disease 2019) (ED) Additional Instructions: At this time your COVID test is positive. Your renal function is at the point that it can take the regular dosing of the Paxlovid. Please take the Paxlovid as directed on the packaging insert. Please stop taking your simvastatin while on this medication. If you notice any worsening of your symptoms, or any new symptoms such as vomiting, diarrhea, fever, chills, shortness of breath, chest pain, numbness, weakness, or fainting , please return immediately to the emergency department for reevaluation. Please follow up with your primary care provider as soon as possible for reassessment and reevaluation. As always, it was a pleasure participating in your medical care today. Medical Decision Making 82-year-old female with past medical history of hypertension, high cholesterol, and previous GELY, presents today with her significant other for symptoms of runny nose, congestion and feeling poorly/malaise. About 48 hours ago the patient started feeling poorly with her significant other. They did a home COVID test and it was positive. She denies any cough, shortness of breath or chest pain. She has received her COVID booster 1 year ago. She has not had COVID yet. She denies any history of blood clots or lung disease. No other complaints at this time. Exam demonstrates a well-appearing female, lung sounds clear, vital signs excellent. No signs of hypoxemia or other concerning abnormalities. With patient's age and risk factors she would be a good candidate for Paxlovid. We will check basic labs to evaluate for renal functionality, monitor closely and reassess. COVID test is positive. Will recommend holding simvastatin while on Paxlovid. Renal function is 34 for GFR, and literature still recommends nonrenal dosing greater than 30 for GFR. We will get this. Discussed red flags which to return. I have extensively reviewed the treatment plan and discharge instructions with the patient and their family. I have addressed all patient concerns at this time. The patient and family was made aware of what symptoms to monitor for that would warrant a return to the emergency department. Discussed the plan with the patient and family, they demonstrate verbal understanding and agreement with our assessment and plan at this time. The documentation in this chart was dictated using [employer] dictation software. Please excuse any dictation errors. HPI General Date/Time Provider Initiated Documentation: 07/04/23 09:24. HPI Narrative: 82-year-old female with past medical history of hypertension, high cholesterol, and previous GELY, presents today with her significant other for symptoms of runny nose, congestion and feeling poorly/malaise. About 48 hours ago the patient started feeling poorly with her significant other. They did a home COVID test and it was positive. She denies any cough, shortness of breath or chest pain. She has received her COVID booster 1 year ago. She has not had COVID yet. She denies any history of blood clots or lung disease. No other complaints at this time. Related Data Home Medications Medication Instructions Recorded Confirmed atenolol 25 mg tablet 50 mg PO DAILY 11/23/13 02/26/23 losartan 100 1 tab-cap PO DAILY 11/23/13 02/26/23 mg-hydrochlorothiazide 25 mg tablet simvastatin 20 mg tablet 20 mg PO DAILY 11/23/13 02/26/23 Eye Vitamins PO DAILY 01/14/18 02/26/23 hydrochlorothiazide 25 mg tablet 25 mg PO DAILY 10/10/22 02/26/23 lorazepam 0.5 mg tablet (Ativan) 0.5 mg PO QHS PRN anxiety #30 tabs 02/26/23 02/26/23 Previous Rx's Medication Instructions Recorded lorazepam 0.5 mg tablet (Ativan) 0.5 mg PO QHS PRN anxiety #30 tabs 02/26/23 Allergies Allergy/AdvReac Type Severity Reaction Status Date / Time acetaminophen [From Percocet] Allergy Unknown Verified 06/28/23 10:52 oxycodone HCl [From Percocet] Allergy Unknown Verified 06/28/23 10:52 erythromycin base AdvReac Sick to Verified 06/28/23 10:52 stomach General WHITNEY: 3 Review of Systems All systems reviewed & are unremarkable except as noted in HPI and below PFSH All Active Problems (Updated 07/04/23 @ 10:40 by August Barboza DO) COVID-19 (Acute) Anxiety (Chronic) Insomnia (Acute) Influenza A (Acute) GLEY (acute kidney injury) (Acute) Rhabdomyolysis (Acute) Skin rash (Acute) Patient advised to use topical antifungal and change type Vulvitis (Acute) History of Mohs surgery for squamous cell carcinoma of skin (Acute) 2015. X2. Fascial defect repaired by plastic surgery at [facility] [place] Presence of pessary (Chronic) 10/2018 64 mm donut pessary. Slipped out with Valsalva. 08/2019 64 mm short stem Gellhorn placed Facial neuralgia (Chronic) 2015 2 [facility] surgeries on left cheek for recurrent squamous cell carcinoma. Subsequent nerve damage involving sensation on cheek and left eye Pessary maintenance (Acute) Cystocele with rectocele (Acute) And stage II uterine prolapse. 10/2018 64 mm donut pessary 08/2019 64 mm short stem Gellhorn. Essential hypertension (Acute) Hyperlipidemia (Acute) Cervical polyp (Acute 02/08/14) Family History Daughter Heart disease History of cardia myopathy had a successful heart transplant Social History Smoking/Tobacco Use Status: Never Smoking risk assessment performed?: Yes Alcohol Intake: current Alcohol Intake frequency: holidays/special occasions only Drug use: Never Substance use type: does not use Household members: spouse and other Details: [facility] Housing: house Number of Children: 4 current occupation: Retired Do you feel safe at home: Yes Do you feel safe in your relationship?: Yes Exam Narrative Exam Narrative: 1.Const: Well-nourished, Well-developed, appearing stated age 2.Eyes: PERRL, no conjunctival injection, and symmetrical lids. 3.ENT: Atraumatic external nose and ears. Moist MM. Neck: Symmetric, trachea midline, No thyromegaly. 4.CVS: +S1/S2, No murmurs or gallops. Peripheral pulses 2+ and equal in all extremities. Brisk capillary refill in all extremities. 5.RESP: Unlabored respiratory effort. Clear to auscultation bilaterally. No wheezes rales or rhonchi 6.GI: Soft, Nontender/Nondistended, No hepatosplenomegaly. No guarding or rebound. 7.MSK: Normocephalic/Atraumatic, Extremities w/o deformity or ttp No cyanosis or clubbing, Normal movement of all extremities 8.Skin: Warm, Dry. No rashes or lesions. 9.Neuro: order runner II-XII grossly intact. Sensation grossly intact, no focal neurologic deficits. 10.Psych: (AAO) x3. Appropriate mood and affect
[2023-07-04 09:34] VITALS: BP 129/62; PULSE 74; RESP 16; O2SAT 96
[2023-07-04 10:16] VITALS: RESP 16
[2023-07-04 10:26] LABS: Anion Gap 10.3 mmol/L (3-11); BUN 23 mg/dL (7-18); CO2 24.7 mmol/L (21.0-32.0); CREATININE 1.5 mg/dL (0.55-1.02); Chloride 103 mmol/L (98-107); Estimated GFR 34.58 (mL/min/1.73m2); Glucose 107 mg/dL (74-106); Potassium 3.8 mmol/L (3.5-5.1); Sodium 138 mmol/L (136-145)
== END 2023-07-04 10:53 | disposition home or self-care (01) ==
PROVIDERS: Emergency Provider Student in an Organized Health Care Education/Training Program
DX: U07.1 COVID-19 (principal); I10 Essential (primary) hypertension; Z87.448 Personal history of other diseases of urinary system
CPT/HCPCS: 36415; 80048; 87426; 99283; 99284

== ENCOUNTER 2023-07-05 10:37 | Emergency (ER) | payer MEDICARE, SELFPAY ==
[2023-07-05 10:48] VITALS: BP 148/56; PULSE 72; RESP 20; TEMP 37.6; O2SAT 97
[2023-07-05 10:52] VITALS: RESP 20
--- NOTE | 2023-07-05 11:02 | ED.GENADUL_ITS ---
Discharge Plan Disposition Patient Disposition: Home Condition: Stable Discharge Details Clinical Impression: COVID Primary Care Provider: Unknown,Unknown ED Provider: Luis Regan Home Meds and New Rx's Prescriptions: Continued lorazepam [Ativan] 0.5 mg tablet 0.5 mg PO QHS PRN (Reason: anxiety) Qty: 30 0RF atenolol 25 MG tablet 50 mg PO DAILY losartan-hydrochlorothiazide 1 EACH tablet 1 tab-cap PO DAILY simvastatin 20 MG tablet 20 mg PO DAILY EYE VITAMINS PO DAILY hydrochlorothiazide 25 mg Tablet 25 mg PO DAILY Discharge Instructions Additional Instructions: Your blood work did not show any significant concerning findings continue to rest and try to stay hydrated follow up with your primary care provider within 1-2 weeks if you feel more ill, have difficulty breathing or persistent vomiting return to the emergency department Medical Decision Making 82 yo female with hx of anxiety, htn, hld, who comes in with fevers, chills and general weakness. She started feeling this way 3 days ago and tested at home for covid and was positive. She was seen yesterday in the ED and started on paxl ovid. She still feels weak and so came here. She denies headache, cough, dyspnea, chest pain, abdominal pain, n/v. no rashes. she is caox4 on arrival in no distress, clear lungs, soft abdomen and stable vitals, no hypoxia. Suspect her symptoms are due to covid, will check cbc, cmp, mag and ua and given iv fluids. labs show mild low mag and mild leukopenia which I suspect is from covid but will add tick panel. She still has stable vitals, stable for d/c, advised to f/u with pcp and return precautions given Differential Diagnosis Differential Diagnosis: covid, electrolyte abnormality HPI General Mode of arrival: ambulatory . Date/Time Provider Initiated Documentation: 07/05/23 10:38 . Limitations to Documentation: no limitations . Information obtained by: patient . History of Present Illness 82 year old F presents to the emergency department with the chief complaint of general weakness, described as moderate, Patient started experiencing this day(s) (3) and it has been constant. No relieving factors improve symptom(s), No exacerbating factors reported . Patient notes fever/chills; denies cough and shortness of breath. Related Data Home Medications Medication Instructions Recorded Confirmed atenolol 25 mg tablet 50 mg PO DAILY 11/23/13 02/26/23 losartan 100 1 tab-cap PO DAILY 11/23/13 02/26/23 mg-hydrochlorothiazide 25 mg tablet simvastatin 20 mg tablet 20 mg PO DAILY 11/23/13 02/26/23 Eye Vitamins PO DAILY 01/14/18 02/26/23 hydrochlorothiazide 25 mg tablet 25 mg PO DAILY 10/10/22 02/26/23 lorazepam 0.5 mg tablet (Ativan) 0.5 mg PO QHS PRN anxiety #30 tabs 02/26/23 02/26/23 Previous Rx's Medication Instructions Recorded lorazepam 0.5 mg tablet (Ativan) 0.5 mg PO QHS PRN anxiety #30 tabs 02/26/23 Allergies Allergy/AdvReac Type Severity Reaction Status Date / Time acetaminophen [From Percocet] Allergy Unknown Verified 06/28/23 10:52 oxycodone HCl [From Percocet] Allergy Unknown Verified 06/28/23 10:52 erythromycin base AdvReac Sick to Verified 06/28/23 10:52 stomach General Stated Complaint: GenMedical WHITNEY: 3 Review of Systems All systems reviewed & are unremarkable except as noted in HPI and below Constitutional Constitutional: Reports chills, Reports fever(s) and Reports weakness Cardiovascular Cardiovascular: Denies chest pain and Denies dyspnea Respiratory Respiratory: Denies cough and Denies dyspnea Gastrointestinal Gastrointestinal: Denies abdominal pain, Denies nausea and Denies vomiting Genitourinary Genitourinary: Denies dysuria Musculoskeletal Musculoskeletal: Denies joint swelling Integumentary/Breasts Skin/Breast: Denies rash Neurologic Neurologic: Reports weakness [facility] All Active Problems (Updated 07/05/23 @ 12:24 by Luis Regan MD) COVID-19 (Acute) COVID (Acute) Anxiety (Chronic) Insomnia (Acute) Influenza A (Acute) GELY (acute kidney injury) (Acute) Rhabdomyolysis (Acute) Skin rash (Acute) Patient advised to use topical antifungal and change type Vulvitis (Acute) History of Mohs surgery for squamous cell carcinoma of skin (Acute) 2016. X2. Fascial defect repaired by plastic surgery at [facility] – [place] Presence of pessary (Chronic) 10/2018 64 mm donut pessary. Slipped out with Valsalva. 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 10/2018 64 mm donut pessary 08/2019 64 mm short stem Gellhorn. Essential hypertension (Acute) Hyperlipidemia (Acute) Cervical polyp (Acute 02/08/14) Family History Daughter Heart disease History of cardia myopathy had a successful heart transplant Social History Smoking/Tobacco Use Status: Never Smoking risk assessment performed?: Yes Alcohol Intake: current Alcohol Intake frequency: holidays/special occasions only Drug use: Never Substance use type: does not use Household members: spouse and other Details: [facility] Housing: house Number of Children: 4 current occupation: Retired Do you feel safe at home: Yes Do you feel safe in your relationship?: Yes Exam Const General: no acute distress Orientation: alert HENMT Head: normal to inspection Ears: external ears normal General nose exam: external nose normal Mouth: moist mucous membranes Eyes General: appearance normal, both eyes and all related structures Neck Neck: normal visual inspection Resp Effort & Inspection: normal respiratory effort and able to speak in complete sentences Auscultation: clear to auscultation bilaterally Cardio Jugular venous pressure: no JVD Rate: regular rate Heart Sounds: no murmurs GI Palpation: soft and nontender Skin General skin exam: no rashes or lesions noted Neuro General: patient alert and patient oriented x3 Extrem General: normal to inspection Psych Mental Status: mental status grossly normal Course Vital Signs Vital signs: Vital Signs Temperature 37.6 C H 07/05/23 10:48 Pulse 72 07/05/23 10:48 Respiratory Rate 07/05/23 10:48 Blood Pressure 148/56 H 07/05/23 10:48 Pulse Oximetry 97 07/05/23 10:48 Temperature 37.6 C H 07/05/23 10:48 Temperature Source Oral 07/05/23 10:48 Pulse 72 07/05/23 10:48 Respiratory Rate 20 07/05/23 10:52 Respiratory Effort Normal 07/05/23 10:52 Respiratory Depth Normal 07/05/23 10:52 Respiratory Pattern Normal 07/05/23 10:52 Blood Pressure 148/56 H 07/05/23 10:48 Blood Pressure Position Supine 07/05/23 10:48 Pulse Oximetry 97 07/05/23 10:48 Oxygen Delivery Method Room Air 07/05/23 10:48 Oxygen Flow Rate 0 07/05/23 10:48 Pain Level 0 07/05/23 10:48
[2023-07-05] MEDS: Normal Saline 1,000 ML 1000 ML IV (11:20)
[2023-07-05 11:27] LABS: Abs Immature Grans 0.02 10^3/uL (0.0-0.06); Absolute Basophil Count 0.01 10^3/uL (0.0-0.2); Absolute Eosinophil Count 0.02 10^3/uL (0.0-0.7); Absolute Lymphocyte Count 0.83 10^3/uL (1.2-3.4); Absolute Monocyte Count 0.58 10^3/uL (0.1-0.8); Absolute Neutrophil Count 2.55 10^3/uL (1.2-6.7); Basophils % 0.2; Eosinophils % 0.5; HCT 33.3 % (36.0-46.0); HGB 11.2 g/dL (11.2-15.7); Immature Grans % 0.5; Lymphocytes % 20.7; MCH 28.4 pg (27.0-33.0); MCHC 33.6 % (32.0-36.0); MCV 85 fL (80-95); MPV 9.7 fL (8.0-11.0); Monocytes % 14.5; Neutrophils % 63.6; Platelet Count 170 10^3/uL (130-400); RBC 3.94 10^6/uL (3.93-5.22); RDW-SD 43.1 fL; WBC 4.01 10^3/uL (4.4-10.8)
[2023-07-05 11:41] LABS: ALT 26 U/L (14-59); AST 32 U/L (15-37); Albumin 3.9 g/dL (3.4-5.0); Alkaline Phosphatase 97 U/L (46-116); Anion Gap 11.6 mmol/L (3-11); BUN 25 mg/dL (7-18); Bilirubin, Total 0.6 mg/dL (0.2-1.0); CO2 24.4 mmol/L (21.0-32.0); CREATININE 1.6 mg/dL (0.55-1.02); Calcium 9.8 mg/dL (8.5-10.1); Chloride 99 mmol/L (98-107); Glucose 92 mg/dL (74-106); Magnesium 1.6 mg/dL (1.8-2.4); Potassium 3.5 mmol/L (3.5-5.1); Sodium 135 mmol/L (136-145); Total Protein 7.9 g/dL (6.4-8.2)
[2023-07-05 11:58] LABS: Procalcitonin < 0.1 ng/mL
[2023-07-05 12:36] VITALS: BP 178/86; PULSE 84; RESP 20; TEMP 37.2; O2SAT 97
[2023-07-08 11:08] LABS: Lyme Ab w Rflx to Lyme Confirm Negative (Negative)
[2023-07-09 12:45] LABS: Anaplasma phagocytophilum Negative (Negative); B. miyamotoi PCR Negative (Negative); Babesia divergens/MO-1 Negative (Negative); Babesia duncani Negative (Negative); Babesia microti Negative (Negative); Ehrlichia chaffeensis Negative (Negative); Ehrlichia ewingii/canis Negative (Negative); Ehrlichia muris eauclairensis Negative (Negative)
== END 2023-07-05 12:40 | disposition home or self-care (01) ==
PROVIDERS: Emergency Provider Emergency Medicine
DX: U07.1 COVID-19 (principal)
CPT/HCPCS: 80053; 84145; 87798; 96360; 99284; 83735; 85025; 86618